=== PATIENT | male | born 1965 | race Caucasian/White ===

== ENCOUNTER → 2018-04-09 | Outpatient (CLI) | payer OTHER ==
[~2018-04-09] MED LIST: CEPH500 PO; CIPR500 PO; CYCL10 PO; Cipro500 MG PO; Flagyl500 MG PO; HYDACE10B PO; HYDACE5 PO; HYDACE5325 PO; HYDMOR4 PO; HYDPAM50 PO; IBUP200; IBUP600 PO; METR500 PO; NAPR500 PO; OMEP20ER PO; OXYACE5T PO; PRED5 PO; PROM25 PO; Prednisone20 MG PO; RXHYD5325 PO; RXHYDACE PO; RXHYDMOR2 PO; SULTRIDS PO; TAMS.4ER PO; Tenormin25 MG PO
[2018-04-09 18:00] LABS: BASOPHILS ABSOLUTE AUTO 0.05 K/mm3 (0.00-0.23); BASOPHILS PERCENT AUTO 1 % (0-2); EOSINOPHILS ABSOLUTE AUTO 0.42 K/mm3 (0.00-0.68); EOSINOPHILS PERCENT AUTO 5 % (0-6); Hematocrit 42.9 % (37.0-53.0); IMMATURE GRAN ABSOLUTE AUTO 0.02 K/mm3 (0.00-0.10); IMMATURE GRAN PERCENT AUTO 0 % (0-1); LYMPHOCYTES ABSOLUTE AUTO 2.25 K/mm3 (0.84-5.20); LYMPHOCYTES PERCENT AUTO 25 % (21-46); MONOCYTES PERCENT AUTO 8 % (4-13); Mean Corpuscular HGB 29.9 pg (26.0-34.0); Mean Corpuscular Volume 86 fL (80-100); Mean Platelet Volume 10.1 fL (9.1-12.4); NEUTROPHILS ABSOLUTE AUTO 5.69 K/mm3 (1.96-9.15); NEUTROPHILS PERCENT AUTO 62 % (41-73); Platelet Count 295 K/mm3 (150-400); RDW Coefficient Variation 13.1 % (11.7-14.2); RDW Standard Deviation 40.3 fL (35.1-46.3); Red Blood Cell Count 5.02 M/mm3 (4.30-5.90); White Blood Cell Count 9.13 K/mm3 (4.00-11.30)
== END | disposition home or self-care (01) ==
LOC: LAB EV 17:57 → LAB SHORT 17:57
PROVIDERS: Physician Assistant Surgical
DX: R22.41 Localized swelling, mass and lump, right lower limb (principal)
CPT/HCPCS: 85025

== ENCOUNTER 2018-04-14 20:29 | Emergency (ER) | payer OTHER ==
[~2018-04-14] VITALS: Ht 175.3 cm; Wt 113.4 kg
[~2018-04-14 20:29] MED LIST changes: -Prednisone20 MG PO
[2018-04-14] MEDS ORDERED: Prednisone20 MG PO (22:59)
== END 2018-04-14 23:05 | disposition home or self-care (01) ==
LOC: ER 20:29
DX: L50.0 Allergic urticaria (principal); T50.A95A Adverse effect of other bacterial vaccines, initial encounter; I10 Essential (primary) hypertension; F17.200 Nicotine dependence, unspecified, uncomplicated; Z88.0 Allergy status to penicillin
CPT/HCPCS: 99282

== ENCOUNTER 2019-02-20 10:33 | Day surgery (SDC) | payer OTHER ==
[~2019-02-20] VITALS: Ht 175.3 cm; Wt 111.2 kg
[~2019-02-20 10:33] MED LIST changes: +HYDCHL25; +MELO7.5; +Prednisone20 MG PO
--- NOTE | 2019-02-20 13:11 | NUR ---
02/20/19 1311 Irma Arredondo LATE ENTRY: PT 02 DROPPED TO 90%. 02 INCREASED TO 5L. PT SATURATION MAINTAINED IN MID 90S REST OF THE CASE.
== END 2019-02-20 13:06 | disposition home or self-care (01) ==
LOC: ORSCSDS 10:33
PROVIDERS: Internal Medicine Gastroenterology
PROC: 0DBL8ZX Excision of Transverse Colon, Via Natural or Artificial Opening Endoscopic, Diagnostic (ICD-10-PCS; principal; 2019-02-20 12:00)
PROC: 0DBN8ZX Excision of Sigmoid Colon, Via Natural or Artificial Opening Endoscopic, Diagnostic (ICD-10-PCS; principal; 2019-02-20 12:00)
DX: Z12.11 Encounter for screening for malignant neoplasm of colon (principal); D12.3 Benign neoplasm of transverse colon; K57.30 Diverticulosis of large intestine without perforation or abscess without bleeding; K64.8 Other hemorrhoids; K21.9 Gastro-esophageal reflux disease without esophagitis; I10 Essential (primary) hypertension; Z87.891 Personal history of nicotine dependence; Z79.899 Other long term (current) drug therapy
CPT/HCPCS: 88305; J2704; J7120